=== PATIENT | female | born 2000 | race Caucasian/White ===

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

== ENCOUNTER 2022-12-29 12:10 | Emergency (ER) | payer OTHER, BC ==
[~2022-12-29] VITALS: Ht 165.1 cm; Wt 56.7 kg
[2022-12-29 13:16] LABS: BASO # 0.1 10*3/uL (0.0-0.1); EOS # 0.1 10*3/uL (0.0-0.4); EOS % 0.8 % (1.0-4.0); HEMATOCRIT 45.7 % (37.0-47.0); LYMPH # 1.7 10*3/uL (1.3-4.4); LYMPH % 16.3 % (27.0-41.0); MEAN CELL VOLUME 90.7 fl (81.0-99.0); MEAN PLATELET VOLUME 11.8 fl (9.6-12.3); MONO # 0.8 10*3/uL (0.1-1.0); MONO % 7.6 % (3.0-9.0); NEUT # 7.6 10*3/uL (2.3-7.9); NEUT % 74.1 % (47.0-73.0); PLATELET COUNT AUTOMATED 306 10*3/uL (130-400); RED BLOOD COUNT 5.04 10*6/uL (4.10-5.10); RED CELL DISTRI WIDTH 13.5 % (0-14.5); WHITE BLOOD COUNT 10.2 10*3/uL (4.8-10.8)
[2022-12-29 13:33] LABS: ALKALINE PHOSPHATASE 87 U/L (46-116); BUN 9 mg/dl (9-23); CHLORIDE 102 mmol/L (98-107); POTASSIUM 3.4 mmol/L (3.4-5.1); SGPT/ALT 28 U/L (10-49); TOTAL PROTEIN 7.8 gm/dL (6.0-8.0)
[2022-12-29] MEDS ORDERED: NAPROSYN500 MG PO (15:11)
[2022-12-29] MEDS ORDERED: CYCLOBENZAPRINE5 M3 PO (15:11)
== END 2022-12-29 15:30 | disposition home or self-care (01) ==
LOC: ED 12:10
PROVIDERS: Student in an Organized Health Care Education/Training Program
DX: M54.2 Cervicalgia (principal); R10.33 Periumbilical pain; R51.9 Headache, unspecified; R07.89 Other chest pain; V89.2XXA Person injured in unspecified motor-vehicle accident, traffic, initial encounter; Y93.89 Activity, other specified; Y92.89 Other specified places as the place of occurrence of the external cause; Y99.8 Other external cause status